=== PATIENT | female | born 1975 | race Caucasian/White ===

== ENCOUNTER 2017-04-07 23:20 | Emergency (ER) | payer MEDICAID, OTHER ==
[~2017-04-07] VITALS: Ht 157.5 cm; Wt 63.0 kg
[2017-04-07 23:24] VITALS: BP 106/72
== END 2017-04-07 23:48 | disposition left against medical advice (07) ==
LOC: ER 23:25
DX: R55 Syncope and collapse (principal); Z53.21 Procedure and treatment not carried out due to patient leaving prior to being seen by health care provider
CPT/HCPCS: Z7610 ×3